=== PATIENT | female | born 1985 | race American Indian/Alaskan Native ===

== ENCOUNTER 2018-03-09 07:47 | Outpatient (CLI) | payer MEDICAID ==
[2018-03-09] MEDS ORDERED: LACTATED RINGERS 500 ML IV ONE (07:52)
[2018-03-09] MEDS ORDERED: NITRATEST PAPER MC ONE (09:08)
--- NOTE | 2018-03-09 09:16 | Ultrasound Report ---
OB ULTRASOUND LIMITED: 03/09/18 CLINICAL: Premature rupture of membranes. FINDINGS: Gestation: Morrow Position: Cephalic. Amniotic Fluid: Low-normal with 2 pockets measuring at least 3 cm in AP dimension. Placenta: Anterior with no previa. Placental Grade: 0 Heart Rate: 156 BPM The cervix is closed. Fluid seen the stomach and bladder. At least one kidney is identified with a tiny renal pelvis. A complete survey was not performed. IMPRESSION: Single live intrauterine fetus at 21 weeks, 4 days based on clinical dating. Low-normal amniotic fluid.
--- NOTE | 2018-03-09 10:54 | Ultrasound Report ---
OB ULTRASOUND LIMITED: 03/09/18 09:48 CLINICAL: Premature labor. Recheck fluid. FINDINGS: Gestation: Morrow Position: Cephalic. Amniotic Fluid: Since last exam at 08:31, amniotic fluid is decreased. 2 pockets of fluid are identified and measure 1.5 and 2 cm in AP dimension. BPD 5.1 = 21 weeks, 4 days HC 18.1 = 20 weeks, 4 days AC 16.4 = 21 weeks, 3 days FL 3.6 = 21 weeks, 3 days Heart Rate: 152 BPM Cervical length: The cervix is shortened and measures approximately 2.7 cm in length. IMPRESSION: Single live intrauterine fetus at 21 weeks 4 daysbased on clinical dating and 21 weeks 2 days based on ultrasound measurements. Amniotic fluid volume has decreased and the cervix has shortened.
--- NOTE | 2018-03-09 10:55 | Event Note ---
Date: 03/09/18 32 YOBF L5 was estimated gestational age of 21 weeks. Patient presented to triage with complaints of leaking fluid consistent with the premature rupture membranes. Patient ultrasound revealed a 21 week fetus with a estimated weight of 417 g and decreased amniotic fluid. Discussed with patient poor prognosis of the with some premature rupture of membrane with a previable fetus. Also explained to the patient is out NICU was presently on diversion. Patient states that she would like to have resuscitation done and the delivered soon. Patient asked to be transferred to [facility]. I did call [facility] and was informed that they were also on NICU diversion. For the patient to try to call the hospitals patient states she rather leave the hospital and try to find the hospital on her own. Did inform the patient and her dad [facility] NICU was also busy unsure growth on diversion. Patient did not want to stay and wait for formal transfer and desires to leave the hospital. Patient's cervix was closed and had no signs of contractions prior to leaving.
== END 2018-03-09 11:10 | disposition left against medical advice (07) ==
LOC: TRG 07:47
PROVIDERS: ATTEND Obstetrics & Gynecology
DX: O47.02 False labor before 37 completed weeks of gestation, second trimester (principal); Z3A.21 21 weeks gestation of pregnancy
CPT/HCPCS: 59025; 76815; 76816